=== PATIENT | male | born 1950 | race Caucasian/White ===

== ENCOUNTER 2018-02-13 11:15 | Emergency (ER) | payer MEDICARE, OTHER ==
[~2018-02-13] VITALS: Ht 177.8 cm; Wt 95.2 kg
[2018-02-13] MEDS ORDERED: ASPIRIN81 MG PO (11:27)
== END 2018-02-13 12:00 | disposition home or self-care (01) ==
LOC: ED 11:15
DX: T63.441A Toxic effect of venom of bees, accidental (unintentional), initial encounter (principal); Z79.82 Long term (current) use of aspirin
CPT/HCPCS: 99282

== ENCOUNTER 2019-09-01 10:51 | Emergency (ER) | payer MEDICARE, OTHER ==
[~2019-09-01] VITALS: Ht 177.8 cm; Wt 95.2 kg
[~2019-09-01 10:51] MED LIST: ASPIRIN81 MG PO
[2019-09-01] MEDS ORDERED: OXYCODONE HCL5 MG PO (11:23)
[2019-09-01] MEDS ORDERED: CYCLOBENZAPRINE10 MG PO (11:23)
[2019-09-01] MEDS ORDERED: FLOMAX0.4 MG PO (12:43)
== END 2019-09-01 13:13 | disposition home or self-care (01) ==
LOC: ED 10:51
DX: R39.198 Other difficulties with micturition (principal); Z79.899 Other long term (current) drug therapy
CPT/HCPCS: 51798; 81001; 99283

== ENCOUNTER 2020-11-19 06:25 | Day surgery (SDC) | payer MEDICARE, OTHER ==
[~2020-11-19] VITALS: Ht 177.8 cm; Wt 93.2 kg
[~2020-11-19 06:25] MED LIST changes: +CRESTOR10 MG PO; +CYCLOBENZAPRINE10 MG PO; +FLOMAX0.4 MG PO; +OXYCODONE HCL5 MG PO
--- NOTE | 2020-11-19 08:32 | NUR ---
11/19/20 0832 Pooja Greenberg 0883 PATIENT ARRIVES TO PACU AWAKE BUT DROWSY. RESP EVEN AND UNLABORED, MASK AT 6 LITERS. FOLLOWS COMMANDS TO COUGH AND DEEP BREATHE. DENIES PAIN OR NAUSEA.
[2020-11-19] MEDS ORDERED: OXYCODON-ACETA1 EAC2 PO (08:50)
[2020-11-19] MEDS ORDERED: IBUPROFEN600 MG PO (08:50)
[2020-11-19] MEDS ORDERED: ACETAMINOPHEN500 MG PO (08:51)
--- NOTE | 2020-11-19 09:10 | NUR ---
PATIENT TO DS FROM PACU. BEDSIDE REPORT FROM SONDRA SORIA. DRESSING TO ABDOMEN C/D/I PATIENT RATES PAIN 3/10 ON PAIN SCALE. NOW EATING SNACK, PLAN TO ADMINISTER PAIN PER MAR.
--- NOTE | 2020-11-19 09:33 | NUR ---
REQ 1 PAIN PILL. RATES PAIN AT 4/10. 1 OXY 7.5/325 GIVEN PHARMACY NOTIFIED OF DOCUMENTATION PROBLEMS.
--- NOTE | 2020-11-19 10:36 | NUR ---
1010 AMB TO BR VOIDS 200MLS DARK URINE. REQUESTS TO GO HOME.
--- NOTE | 2020-11-19 10:38 | NUR ---
1020 RATES PAIN 2/10 RX EFFECTIVE.
--- NOTE | 2020-11-20 13:48 | OR ---
[facility] [address] [place], [place] [address] Signed DATE OF OPERATION: 11/19/2020 SURGEON: Maral Chavira MD PREOPERATIVE DIAGNOSIS: Symptomatic umbilical hernia. POSTOPERATIVE DIAGNOSIS: Symptomatic umbilical hernia. PROCEDURE: Repair of umbilical hernia without implantation of mesh. ANESTHESIA: General endotracheal; Maral Boyer CRNA and local 10 mL of 0.25% Marcaine with epinephrine. 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 It was relatively small. The fascial defect not too much larger than the tip of an index finger. Protrusion of intraabdominal viscera is noted. He has had no obstructive symptoms of chronic cough, constipation or urinary outlet obstructive symptoms. He has been started on Flomax, which helped a voiding problem quite markedly. He is admitted at this time to undergo repair of the hernia. He understands the risks of bleeding, infection, recurrence and so on. FINDINGS: The fascial defect was small enough that implantation of mesh would not be beneficial in fact would probably be cumbersome and mettlesome. On that basis, primary reapproximation of fascial layer was undertaken with interrupted 0 Prolene suture with good result. DESCRIPTION OF PROCEDURE: The patient was brought to the operating room, given a general endotracheal anesthetic. Preoperative antibiotic Ancef was given. Sequential compression device stockings were used and heparin subcutaneously administered. After satisfactory general endotracheal anesthesia, the abdomen was clipped and prepared with chlorhexidine solution and draped sterilely. A curvilinear incision was made to the left of the umbilicus. Dissection was carried through the subcutaneous tissue identifying well the fascial defect, which Electronically Signed By: MARAL CHAVIRA MD 11/20/20 1348 PATIENT NAME: BRETT PAYNE OPERATIVE REPORT DATE OF : 54 REPORT #: [id number] PHYSICIAN: MARAL CHAVIRA MD PCP: STEVEN RECIO MD REPORT IS CONFIDENTIAL AND NOT TO BE RELEASED WITHOUT AUTHORIZATION [facility] [address] [place], [place] [address] Signed was less than 2 cm. The herniated viscus with properitoneal fat was freed from the overlying dermis of the umbilical skin. This was easily able to be reduced into the properitoneal space. Close examination showed good verduzco fascia and then unlikely chance of reherniation with primary repair without implantation of mesh. Notably, he does have a somewhat of a diastasis rectus well cephalad to the hernia defect. The fascial edges were reapproximated with interrupted 0 Prolene suture. The edges of the fascia were scarified with electrocautery initially. Approximately, 5 repair sutures were placed. 10 mL of 0.25% Marcaine with epinephrine was injected locally. The subcutaneous tissue was reapproximated with interrupted 2-0 Vicryl and a running subcuticular 3-0 Vicryl. Steri-Strips were applied as was a silver sponge and Acticoat dressing. The patient tolerated procedure well. BLOOD LOSS: Minimal. COMPLICATIONS: None. MD DANIEL Quesada/MICKEY /[id number] cc: Steven Recio MD Copies: STEVEN RECIO DMD ~ Electronically Signed By: MARAL CHAVIRA MD 11/20/20 1348 PATIENT NAME: BRETT PAYNE OPERATIVE REPORT DATE OF : 54 REPORT #: [id number] PHYSICIAN: MARAL CHAVIRA MD PCP: STEVEN RECIO MD REPORT IS CONFIDENTIAL AND NOT TO BE RELEASED WITHOUT AUTHORIZATION
== END 2020-11-19 10:20 | disposition home or self-care (01) ==
LOC: DS 06:25
PROVIDERS: ATTEND Surgery
PROC: 0WQF0ZZ Repair Abdominal Wall, Open Approach (ICD-10-PCS; principal; 2020-11-19 06:45)
DX: K42.9 Umbilical hernia without obstruction or gangrene (principal)
CPT/HCPCS: J0330; J0690; J1100; J1644; J1885; J2250; J2405; J2704; J2765; J3010; J7121

== ENCOUNTER 2023-06-11 07:05 | Day surgery (SDC) | payer MEDICARE, OTHER ==
[~2023-06-11] VITALS: Ht 177.8 cm; Wt 90.9 kg
[~2023-06-11 07:05] MED LIST changes: +ACETAMINOPHEN500 MG PO; +IBUPROFEN600 MG PO; +OXYCODON-ACETA1 EAC2 PO; +PRAVASTATIN SOD40 MG PO
--- NOTE | 2023-06-11 07:23 | NUR ---
EXERCISED MINISTRY OF PRESENCE PT AND WAITED FOR CHECK-IN. BOTH IN GOOD SPIRITS. PRAYED FOR SUCCESSFUL PROCEDURE AND CLEAR RESULTS.
[2023-06-11 07:45] VITALS: BP 132/71
[2023-06-11] MEDS ORDERED: LOSARTAN POTASS25 MG PO (07:48)
[2023-06-11] MEDS ORDERED: PREDNISONE5 MG PO (07:49)
[2023-06-11] MEDS ORDERED: METFORMIN HCL500 M1 PO (07:49)
--- NOTE | 2023-06-11 09:23 | NUR ---
06/11/23 0923 Martine Youssef 0807 PT ARRIVED IN PACU SLEEPY WITH NO C/O'S. ABD FIRM. ENCOURAGED TO TRY AND PASS FLATUS. 0910 DR AT BEDSIDE. ALL QUESTIONS ANSWERED. 0915 PASSING FLATUS. ABD SOFTER. 0920 SIPPING ON WATER.
[2023-06-11 09:29] VITALS: BP 126/81
--- NOTE | 2023-06-11 20:08 | OR ---
[facility] [address] [place], [place] [address] Signed DATE OF OPERATION: 06/11/2023 SURGEON: Maral Chavira MD PREOPERATIVE DIAGNOSES: 1. Colon screening. 2. History of diverticulosis. POSTOPERATIVE DIAGNOSES: 1. Mild cecitis. 2. Diverticulitis, sigmoid and left colon. PROCEDURE: Total colonoscopy to cecum with biopsy of cecum. ANESTHESIA: Intravenous sedation, fentanyl 100 mcg and Versed 7 mg. INDICATIONS: A 73-year-old white man is a patient of Dr. Steven Cook and well known to me from the past. He underwent colonoscopy in 2008 showing only diverticulosis. He has no family history of colon cancer. No current symptoms of bleeding, diarrhea, or constipation. He understands risk of bleeding, infection, and perforation related to colonoscopy and wished to proceed. FINDINGS: The prep was good. Complete colonoscopy was undertaken of the cecum with full intubation of the cecum. There appeared to be some mild inflammation of the cecum of uncertain and diverticula of the left colon and sigmoid. There were no other findings of concern. DESCRIPTION OF PROCEDURE: The patient was brought to the endoscopy suite and placed in lateral decubitus position given intravenous sedation to the point of slurred speech and nystagmus with full cardiopulmonary monitoring. Digital rectal examination was normal. An Olympus video colonoscope was passed into the rectum and manipulated throughout the colon, ultimately intubating the cecum. The ileocecal valve and appendiceal orifice were normal. There appeared to be mild inflammation of the cecum, and on that basis biopsy was obtained. The scope was then withdrawn and the remaining colon was normal Electronically Signed By: MARAL CHAVIRA MD 06/11/232007 PATIENT NAME: BRETT PAYNE OPERATIVE REPORT DATE OF : 54 REPORT #: [id number] PHYSICIAN: MARAL CHAVIRA MD PCP: STEVEN RECIO MD REPORT IS CONFIDENTIAL AND NOT TO BE RELEASED WITHOUT AUTHORIZATION [facility] [address] [place], [place] [address] Signed except for diverticular change of the left colon and cecum. Retroflexed view of the rectum was normal. Scope was removed, and the patient taken to the recovery room in good condition. CONCLUDING DIAGNOSIS: Diverticulosis, mild cecitis. PLAN: Recommend repeat colonoscopy in 10 years or sooner if clinically indicated. Recommend high-fiber diet otherwise. He will return to the ongoing care of Dr. Recio. MD DNAIEL Quesada/ZHENL /[id number] cc: Steven Recio MD Copies: STEVEN RECIO DMD ~ Electronically Signed By: MARAL CHAVIRA MD 06/11/232007 PATIENT NAME: BRETT PAYNE OPERATIVE REPORT DATE OF : 54 REPORT #: [id number] PHYSICIAN: MARAL CHAVIRA MD PCP: STEVEN RECIO MD REPORT IS CONFIDENTIAL AND NOT TO BE RELEASED WITHOUT AUTHORIZATION
--- NOTE | 2023-06-13 12:16 | PATH ---
[facility] [address] [place], [place] [address] Signed SPECIMEN(S): A CECUM COLON BIOPSY SPECIMEN SOURCE: A. CECUM COLON BIOPSY CLINICAL HISTORY: Surveillance colonoscopy. Diverticulitis, mild cecitis. FINAL PATHOLOGIC DIAGNOSIS: Cecum colon biopsy: - Benign colonic mucosa, negative for epithelial atypia or pathologic inflammation. JR:bruce MICROSCOPIC EXAMINATION: Histologic sections of all submitted blocks are examined by light microscopy. These findings, together with the gross examination, support the pathologic diagnosis. GROSS DESCRIPTION: The specimen, labeled and designated "Sotero cecum biopsy," is received in formalin and consists of two catherine soft tissue fragments, ranging from 0.1-0.2 cm. Entirely submitted in (A1). JS (under the direct supervision of a pathologist) The Gross Description was prepared using a voice recognition system. The report was reviewed for accuracy; however, sound-alike word errors, addition and/or deletions may occur. If there is any question about this report, please contact Client Services. PERFORMING LABORATORY: Technical component was performed by [facility], [address] [place] [id number] (CLIA# [id number]). Professional interpretation was performed by [facility], [address] [place] [id number] (CLIA#: [id number]). Diagnostician: Soham Spangler MD Pathologist Electronically Signed 06/13/2023 Copies: PATIENT NAME: BRETT PAYNE PATHOLOGY DATE OF : 54 REPORT #: [id number] PHYSICIAN: [facility] PCP: STEVEN RECIO MD REPORT IS CONFIDENTIAL AND NOT TO BE RELEASED WITHOUT AUTHORIZATION [address] [address] Signed ~ PATIENT NAME: BRETT PAYNE [facility] DATE OF : 54 REPORT #: [id number] PHYSICIAN: [facility] PCP: STEVEN RECIO MD REPORT IS CONFIDENTIAL AND NOT TO BE RELEASED WITHOUT AUTHORIZATION
== END 2023-06-11 09:35 | disposition home or self-care (01) ==
LOC: OPS 07:05 → DS 07:05 → OPS 08:15
PROVIDERS: ATTEND Surgery
PROC: 0DBH8ZX Excision of Cecum, Via Natural or Artificial Opening Endoscopic, Diagnostic (ICD-10-PCS; principal; 2023-06-11 08:15)
DX: Z12.11 Encounter for screening for malignant neoplasm of colon (principal); K57.30 Diverticulosis of large intestine without perforation or abscess without bleeding; K52.9 Noninfective gastroenteritis and colitis, unspecified; I10 Essential (primary) hypertension; E11.9 Type 2 diabetes mellitus without complications; M35.3 Polymyalgia rheumatica; N40.0 Benign prostatic hyperplasia without lower urinary tract symptoms; K42.9 Umbilical hernia without obstruction or gangrene; Z79.899 Other long term (current) drug therapy
CPT/HCPCS: 88305; 99153; G0500; J2250; J3010; J7121

== ENCOUNTER 2024-05-22 19:13 | Emergency (ER) | payer MEDICARE, OTHER ==
[~2024-05-22] VITALS: Ht 177.8 cm; Wt 97.0 kg
[~2024-05-22 19:13] MED LIST changes: +LOSARTAN POTASS25 MG PO; +METFORMIN HCL500 M1 PO; +PREDNISONE5 MG PO
[2024-05-22] MEDS ORDERED: PAXLOVID 300-11 EAC1 PO (19:28)
[2024-05-22] MEDS ORDERED: ROSUVASTATIN CA20 MG PO (19:28)
[2024-05-22 19:45] LABS: BASOPHILS 0.5 % (0-2); EOSINOPHILS 0.1 % (0-6); HEMATOCRIT 42.7 % (35.0-50.0); HEMOGLOBIN 14.7 g/dL (12.0-18.0); LYMPHOCYTES 7.7 % (24-44); MCH 32.1 (27-36); MCHC 34.3 g/dl (30-36); MCV 93.6 fl (81-99); MONOCYTES 10.4 % (0-12); NEUTROPHILS 81.3 % (39-80); PLATELET COUNT 172 K/uL (140-440); RBC 4.56 M/ul (4.3-5.7); RDW 12.8 (10.5-15.0)
[2024-05-22 19:57] LABS: ALBUMIN 4.2 g/dL (3.4-5.0); ALBUMIN/GLOBULIN RATIO 1.31 (1.1-2.4); BILIRUBIN, TOTAL 0.5 ng/dL (0.2-1.0); BUN/CREATININE RATIO 8.51 (6.0-28.6); CALCIUM 9.3 mg/dL (8.5-10.1); CREATININE, SERUM 1.41 mg/dL (0.70-1.30); PROTEIN, TOTAL 7.4 g/dL (6.4-8.2)
[2024-05-22] MEDS ORDERED: KETOROLAC TROMETHAMINE 30 MG/ML VIAL IV ONE (20:00)
[2024-05-22] MEDS ORDERED: SODIUM CHLORIDE 0.9% 1,000 ML IV ONE ×2 (20:00→21:00)
[2024-05-22 20:02] LABS: LACTIC ACID, BLOOD 1.3 mmol/L (0.4-2.0)
[2024-05-22] MEDS ORDERED: ACETAMINOPHEN 500 MG TAB PO ONE (20:15)
[2024-05-22 20:30] LABS: BILIRUBIN, URINE NEGATIVE (negative); BLOOD/HGB, URINE TRACE-I (Negative); KETONE, URINE SMALL (Negative); LEUK ESTERASE, URINE NEGATIVE (negative); NITRITE, URINE NEGATIVE (negative); PH, URINE 7.5 (5-7)
[2024-05-22 20:35] LABS: BACTERIA, URINE RARE /hpf (negative); CASTS, URINE NONE SEEN \\lpf; COLLECTION TYPE, URINE CLEAN CATCH; CRYSTALS, URINE NONE SEEN (0-1+); EPITHELIAL CELLS, URINE SQUAMOUS 1+ /lpf (0-1+); REFLEX CULTURE, URINE No (No); WHITE BLOOD CELLS, URINE 0-1 /HPF (0-5)
[2024-05-22] MEDS ORDERED: ALBUTEROL SULFATE 8 GM HOME.PACK INH ONE (21:00)
[2024-05-22] MEDS ORDERED: GUAIFENESIN/CODEINE 60 ML HOME.PACK PO ONE (21:00)
[2024-05-22] MEDS ORDERED: CYCLOBENZAPRINE10 MG PO (21:00)
[2024-05-22] MEDS ORDERED: INHALER, ASSIST DEVICES 1 EACH SPACER MISC ONE (21:00)
[2024-05-22] MEDS ORDERED: ONDANSETRON ODT8 MG PO (21:00)
[2024-05-22] MEDS ORDERED: CYCLOBENZAPRINE HCL 10 MG HOME.PACK PO ONE (21:00)
[2024-05-22] MEDS ORDERED: ONDANSETRON 4 MG HOME.PACK SL ONE (21:00)
[2024-05-22] MEDS ORDERED: DEXAMETHASONE SOD PHOS 10 MG/ML VIAL IV ONE (21:00)
[2024-05-22] MEDS ORDERED: CYCLOBENZAPRINE HCL 10 MG TAB PO ONE (21:45)
[2024-05-22 22:10] VITALS: BP 148/89
== END 2024-05-22 22:10 | disposition home or self-care (01) ==
LOC: ED 19:13
PROVIDERS: Family Medicine
DX: U07.1 COVID-19 (principal); E11.9 Type 2 diabetes mellitus without complications; I10 Essential (primary) hypertension; Z79.899 Other long term (current) drug therapy; Z79.84 Long term (current) use of oral hypoglycemic drugs
CPT/HCPCS: 36415; 71045; 80053; 81001; 83605; 83615; 83735; 85025; 94664; 96361; 96374; 96375; 99283-25; A9270; J1100; J1885; J7030